=== PATIENT | male | born 2000 | race Asian ===

== ENCOUNTER 2025-03-22 08:18 | Emergency (ER) | payer OTHER, SELFPAY ==
[2025-03-22 08:26] VITALS: BP 127/78; PULSE 85; RESP 16; TEMP 36.6; O2SAT 98; BMI 33.6
--- NOTE | 2025-03-22 08:31 | ED.EXTPRO ---
HPI - Extremity Problem General Chief complaint: Extremity Problem,Nontraumatic Stated complaint: Gout flare up. x 3 days Time Seen by Provider: 03/22/25 08:31 History of Present Illness HPI Narrative: Patient is a 24-year-old male history of gout presenting today with gout in his right big toe. He says it has been there for about 3 days. Typically takes colchicine sometimes at work sometimes it does not by his out of colchicine. He also typically gets steroid pack which usually helps. He denies any fever or chills. Unsure what caused this flare. This feels like a typical gout flare for him. No other issues. Related Data Previous Rx's ?Medication ?Instructions ?Recorded methylprednisolone 4 mg tablets in See Rx Instructions PO .COMPLEX 03/22/25 a dose pack (Medrol (Sami)) #21 ea Allergies Allergy/AdvReac Type Severity Reaction Status Date / Time acetaminophen AdvReac Hives Verified 03/22/25 08:27 Exam Initial Vital Signs Initial Vital Signs: Vital Signs Temperature 97.8 F 03/22/25 08:26 Pulse Rate 85 03/22/25 08:26 Respiratory Rate 16 03/22/25 08:26 Blood Pressure 127/78 03/22/25 08:26 Pulse Oximetry 98 03/22/25 08:26 Oxygen Delivery Method Room Air 03/22/25 08:26 GENERAL: Well-appearing, well-nourished and in no acute distress. CARDIOVASCULAR: peripheral pulses in tact, cap refill <2 sec RESPIRATORY: No respiratory distress, speaks in full sentences without difficulty EXTREMITIES: Normal range of motion, no clubbing or edema. Neurovascularly intact Right great toe no significant erythema no swelling it is tender to touch NEUROLOGICAL: Cranial nerves II through XII grossly intact. Normal gait and speech. SKIN: Warm, dry, no petechiae, no rashes or lesions. Course Orders Ordered: Discontinued Medications Colchicine (Colchicine 0.6 Mg Tablet) 1.2 mg PO NOW ONE Stop: 03/22/25 08:32 Last Admin: 03/22/25 08:47 Dose: 1.2 mg Documented By: CTS Vital Signs Vital signs: Vital Signs - 8 hr 03/22/25 08:26 Temperature 97.8 F Pulse Rate 85 Respiratory Rate 16 Blood Pressure 127/78 Pulse Oximetry 98 Oxygen Delivery Method Room Air MDM - Extremity (Nontraumatic) MDM Narrative Medical decision making narrative: Patient is a history of gout presenting today with right great toe pain similar to previous gout flares. Given colchicine here in the ED and steroid taper for home. It is not red is non erythematous no concern for cellulitis he has had no injury no need for x-ray Discharge Plan Departure Patient Disposition: Home Clinical Impression: Gout Instructions: Gout Activity Restrictions/Additional Instructions: *You have been diagnosed with gout *What to do: At this time I hope that your it starts feeling better *Continue to take medications as directed Take steroid as prescribed *Follow up with your primary care provider in 2-3 days or call [phone] *Return to ER if you should have increasing redness pain fever or any new, worsening or concerning symptoms Prescriptions: New methylprednisolone [Medrol (Sami)] 4 mg tablets,dose pack See Rx Instructions .ROUTE .COMPLEX Qty: 21 0RF Rx Instructions: for 6 days Stand Alone Forms: Patient Portal/API
[2025-03-22] MEDS: COLCHICINE 0.6 MG TABLET 1.2 MG PO (08:47)
== END 2025-03-22 08:49 | disposition home or self-care (01) ==
PROVIDERS: Emergency Provider Emergency Medicine
DX: M10.9 Gout, unspecified (principal)
CPT/HCPCS: 99283